=== PATIENT | male | born 1950 | race Caucasian/White ===

== ENCOUNTER 2018-01-04 13:04 | Emergency (ER) | payer BC, MEDICARE ==
[2018-01-04] MEDS ORDERED: BUFFERED LIDOCAINE 10 ML SYRINGE SUBQ STA (15:37)
--- NOTE | 2018-01-04 15:39 | ED Physician Documentation ---
PD HPI ANIMAL BITE - Stated complaint Stated Complaint: DOG BITE/HAND - Chief complaint Chief Complaint: Laceration - History obtained from History obtained from: Patient - History of Present Illness Location of injury(ies): Left hand Details of the event: Dog, Bite, Scratch, Pet animal, Well appearing, Immunized , Provoked Timing - onset: Today Timing - duration: Hours Timing - details: Abrupt onset, Still present Improved by: Rest, Immobilization Worsened by: Moving, Palpating Associated symptoms: No: Weakness, Numbness, Tingling, Swelling Contributing factors: No: Immunocompromised Similar symptoms before: Has not had sx before Recently seen: Not recently seen - Additional information Additional information: 67-year-old male 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 He believes the animal felt threatened because he was restrained and this is apparently the first bite this 3-year-old dog has provided. Review of Systems Constitutional: denies: Fever Eyes: denies: Decreased vision Ears: denies: Loss of hearing Nose: denies: Congestion Throat: denies: Sore throat Respiratory: denies: Cough GI: denies: Vomiting Skin: reports: Laceration (s), Bite / sting Musculoskeletal: reports: Extremity pain. denies: Neck pain, Back pain Neurologic: denies: Generalized weakness, Focal weakness, Numbness PD PAST MEDICAL HISTORY - Past Medical History Past Medical History: Yes Cardiovascular: None, Arrhythmia Respiratory: None Endocrine/Autoimmune: None GI: None : Benign prostate hypertrophy, Frequency, Other HEENT: None Psych: None Musculoskeletal:  Derm: Other - Past Surgical History Past Surgical History: Yes General: Colonoscopy Ortho: Other - Present Medications Home Medications: Ambulatory Orders Medication Instructions Recorded Confirmed Acetaminophen [Tylenol] 650 mg PO Q6H PRN 01/25/14 01/25/14 Acyclovir 400 mg PO BID 01/25/14 01/25/14 Sildenafil Citrate [Viagra] 25 mg PO DAILY PRN 01/25/14 01/25/14 Amox/Clav 875/125 [Augmentin] 1 each PO Q12H #14 tablet 01/04/18 - Allergies Allergies/Adverse Reactions: Allergies Allergy/AdvReac Type Severity Reaction Status Date / Time No Known Drug Allergies Allergy Verified 01/04/18 13:26 - Social History Does the pt smoke?: No Smoking Status: Never smoker Does the pt drink ETOH?: No Does the pt have substance abuse?: No - Immunizations Immunizations are current?: Yes - POLST Patient has POLST: No PD ED PE NORMAL - Vitals Vital signs reviewed: Yes (hypertensive ) - General General: Alert and oriented X 3, No acute distress, Well developed/nourished - HEENT HEENT: Atraumatic, PERRL, EOMI - Neck Neck: Supple, no meningeal sign - Respiratory Respiratory: No respiratory distress - Derm Derm: Normal color, Warm and dry, No rash - Extremities Extremities: No deformity, No edema, Other (over the palmar surface there is a 2cm laceration with exposed fatty tissue. distal n/v is intact. ) - Neuro Neuro: Alert and oriented X 3, dolly pusher 2-12 intact, No motor deficit, No sensory deficit, Normal speech Eye Opening: Spontaneous Motor: Obeys Commands Verbal: Oriented GCS Score: 15 - Psych Psych: Normal mood, Normal affect Results - Vitals Vitals: Vital Signs - 24 hr 01/04/18 13:19 Temperature 36.3 C L Heart Rate 69 Respiratory 16 Rate Blood Pressure 143/86 H O2 Saturation 98 Oxygen O2 Source Room air Procedures - Laceration (location) left hand Length in cm: 3 Wound type: Irregular, Flap, Clean Neurovascular status: Sensory intact, Motor intact, Vascular intact Anesthesia: Lidocaine 1%, With bicarb Wound Preparation: Hibiclens, Irrigated copiously NS, Wound explored, To the base Skin layer closure: Nylon, Interrupted, Size #-0 - enter number (4-0), Sutures - enter # (2) Other: Patient tolerated well, No complications, Neurovascular intact, Dressing applied, Tetanus booster given Complexity: Simple PD MEDICAL DECISION MAKING - ED course Complexity details: considered differential, d/w patient ED course: 67-year-old male with a deep jagged jagged laceration to the palm of his left hand from a dog bite is at risk for infection. I discussed with the patient leaving the wound open and instead we have cleaned the wound thoroughly and applied to sutures to loosely approximate the wound. I have instructed the patient to return to the emergency department should he have any sign of infection and we will place him on some Augmentin as well. He is given a tetanus booster. - Sepsis Event Vital Signs: Vital Signs - 24 hr 01/04/18 13:19 Temperature 36.3 C L Heart Rate 69 Respiratory 16 Rate Blood Pressure 143/86 H O2 Saturation 98 Oxygen O2 Source Room air Departure - Departure Disposition: 01 Home, Self Care Clinical Impression: Dog bite of hand Qualifiers: Encounter type: initial encounter Laterality: left Qualified Code(s): S61.452A - Open bite of left hand, initial encounter; W54.0XXA - Bitten by dog, initial encounter; W54.0XXA - Bitten by dog, initial encounter Instructions: ED Laceration Hand, ED Bite Dog Follow-Up: [facility] [Provider Group] Prescriptions: Amox/Clav 875/125 [Augmentin] 1 each PO Q12H #14 tablet
[2018-01-04] MEDS ORDERED: TETANUS/DIPHTHERIA/PERTUSSIS 0.5 ML SYRINGE IM ONE (15:59)
[2018-01-04 16:03] VITALS: BP 138/85
== END 2018-01-04 16:09 | disposition home or self-care (01) ==
LOC: ED 13:04
DX: S61.452A Open bite of left hand, initial encounter (principal); Z23 Encounter for immunization; W54.0XXA Bitten by dog, initial encounter; Y93.89 Activity, other specified; Y92.099 Unspecified place in other non-institutional residence as the place of occurrence of the external cause
CPT/HCPCS: 12002; 90471; 99283

== ENCOUNTER 2020-04-12 08:29 | Day surgery (SDC) | payer MEDICARE ==
[2020-04-12] MEDS ORDERED: LACTATED RINGERS 1,000 ML IV ONE ×2 (08:38→10:57)
[2020-04-12] MEDS ORDERED: fentaNYL 250 MCG/5 ML VIAL IVP ONE (10:33)
[2020-04-12] MEDS ORDERED: MIDAZOLAM 2 MG/2 ML VIAL IVP ONE (10:33)
[2020-04-12 11:22] VITALS: BP 129/78
== END 2020-04-12 08:30 | disposition home or self-care (01) ==
LOC: SDS 08:29
PROVIDERS: ATTEND Surgery
DX: Z12.11 Encounter for screening for malignant neoplasm of colon (principal); K64.8 Other hemorrhoids; N40.0 Benign prostatic hyperplasia without lower urinary tract symptoms
CPT/HCPCS: G0121; J7120